=== PATIENT | male | born 1980 | race Caucasian/White ===

== ENCOUNTER 2018-12-26 19:36 | Emergency (ER) | payer SELFPAY ==
[~2018-12-26] VITALS: Ht 165.1 cm; Wt 73.0 kg
[2018-12-26 21:02] LABS: BASOPHILS % 1.1 % (0.0-2.0); EOSINOPHILS % 4.2 % (0.0-5.0); HEMOGLOBIN. 13.6 g/dL (14.0-18.0); LYMPHOCYTES % 40.1 % (20.0-50.0); MEAN CORPUSCULAR HEMOGLOBIN 29.3 pg (28.0-32.0); MEAN CORPUSCULAR VOLUME 86.3 fL (80.0-94.0); MONOCYTES % 10.7 % (2.0-8.0); NEUTROPHILS % 43.9 % (40.0-76.0); PLATELET 273 x1000/uL (130-400); RED BLOOD CELL COUNT 4.63 mill/uL (4.7-6.1); RED CELL DISTRIBUTION WIDTH 14.2 % (11.6-14.6)
[2018-12-26 21:05] LABS: CHLORIDE 105 mEq/L (98-107)
[2018-12-26 21:08] LABS: ETHANOL BLOOD < 10 mg/dL
[2018-12-26 21:40] LABS: *AMPHETAMINES SCREEN URINE NEGATIVE (NEGATIVE); *BARBITURATES SCREEN URINE NEGATIVE (NEGATIVE); *BENZODIAZEPINES SCREEN URINE NEGATIVE (NEGATIVE); *COCAINE SCREEN URINE NEGATIVE (NEGATIVE); CANNABINOID URINE SCREEN NEGATIVE (NEGATIVE); METHADONE URINE SCREEN NEGATIVE (NEGATIVE); OPIATES URINE SCREEN NEGATIVE (NEGATIVE); PHENCYCLIDINE URINE SCREEN NEGATIVE (NEGATIVE)
[2018-12-27] MEDS ORDERED: OLANZAPINE 10 MG/VIAL IM ONE (01:15)
[2018-12-27] MEDS ORDERED: LORAZEPAM 2MG/ML CPJ IM ONE ×2 (01:15→19:30)
[2018-12-27] MEDS ORDERED: DIPHENHYDRAMINE 50MG/ML VIAL IM ONE (01:15)
[2018-12-27] MEDS ORDERED: QUETIAPINE FUMARATE 100MG TABLET PO SCH (20:45)
[2018-12-28] MEDS: QUETIAPINE FUMARATE 100MG TABLET PO SCH ×3 (10:02→21:17)
[2018-12-29] MEDS ORDERED: LORAZEPAM 2MG/ML CPJ IM PRN (04:00)
[2018-12-29] MEDS: QUETIAPINE FUMARATE 100MG TABLET PO SCH ×2 (09:00)
[2018-12-29 10:52] VITALS: BP 123/82
== END 2018-12-29 11:15 | disposition home or self-care (01) ==
LOC: ER 19:59
DX: F06.33 Mood disorder due to known physiological condition with manic features (principal); R45.851 Suicidal ideations; Z75.1 Person awaiting admission to adequate facility elsewhere
CPT/HCPCS: 36415; 80048; 80305; 80307; 80320; 80329; 85025; 96372; 99284; J1200; J2060; J3490; 99285; G0480

== ENCOUNTER 2021-09-26 11:26 | Inpatient (IN) | payer MEDICARE, MEDICAID ==
[~2021-09-26] VITALS: Ht 165.1 cm; Wt 92.1 kg
[2021-09-26] MEDS ORDERED: NITROGLYCERIN 0.4MG TABLET SL SL PRN (11:45)
[2021-09-26] MEDS ORDERED: ASPIRIN 81MG TABLET PO ONE (11:45)
[2021-09-26 12:11] LABS: CHLORIDE 106 mEq/L (98-107)
[2021-09-26 12:14] LABS: ETHANOL BLOOD < 10 mg/dL
[2021-09-26 12:16] LABS: BASOPHILS % 0.5 % (0.0-2.0); EOSINOPHILS % 1.1 % (0.0-5.0); HEMATOCRIT. 43.2 % (42.0-52.0); LYMPHOCYTES % 47.8 % (20.0-50.0); MEAN CORPUSCULAR HEMOGLOBIN 29.9 pg (28.0-32.0); MEAN CORPUSCULAR VOLUME 86.3 fL (80.0-94.0); MEAN PLATELET VOLUME 9.9 fl (7.4-10.4); MONOCYTES % 11.2 % (2.0-8.0); NEUTROPHILS % 39.4 % (40.0-76.0); PLATELET 165 x1000/uL (130-400); RED BLOOD CELL COUNT 5.01 mill/uL (4.7-6.1); RED CELL DISTRIBUTION WIDTH 12.9 % (11.6-14.6)
[2021-09-26 12:33] LABS: *AMPHETAMINES SCREEN URINE NEGATIVE (NEGATIVE); *BARBITURATES SCREEN URINE NEGATIVE (NEGATIVE); CANNABINOID URINE SCREEN NEGATIVE (NEGATIVE); METHADONE URINE SCREEN NEGATIVE (NEGATIVE); OPIATES URINE SCREEN NEGATIVE (NEGATIVE); PHENCYCLIDINE URINE SCREEN NEGATIVE (NEGATIVE)
[2021-09-26 12:34] LABS: *BENZODIAZEPINES SCREEN URINE NEGATIVE (NEGATIVE); *COCAINE SCREEN URINE NEGATIVE (NEGATIVE)
[2021-09-26] MEDS ORDERED: SODIUM CHLORIDE 0.9% 1,000 ML IV ONE (12:45)
[2021-09-26 15:40] VITALS: BP 125/83
[2021-09-26] MEDS ORDERED: LACT1CAP60 PO (18:17)
[2021-09-26] MEDS ORDERED: PYRI-9 PO (18:17)
[2021-09-26] MEDS ORDERED: CHOL500063 (18:18)
[2021-09-26] MEDS ORDERED: BICT1TAB PO (18:30)
[2021-09-26] MEDS ORDERED: DIVA-75 MT (18:30)
[2021-09-26] MEDS ORDERED: ATOR20TA65 MT (18:30)
[2021-09-26] MEDS ORDERED: AMLO5TAB88 MT (18:30)
[2021-09-26] MEDS ORDERED: ISON300T19 MT (18:31)
[2021-09-26] MEDS ORDERED: OMEP20TA2 MT (18:31)
[2021-09-26 20:00] VITALS: BP 115/67
[2021-09-26] MEDS ORDERED: ZOLPIDEM TARTRATE 5MG TABLET PO PRN (21:00)
[2021-09-26] MEDS ORDERED: ATORVASTATIN CALCIUM 20MG TABLET PO SCH (21:00)
[2021-09-26] MEDS ORDERED: DIPHENHYDRAMINE 50MG/ML VIAL IV PRN (22:45)
[2021-09-26] MEDS ORDERED: CLONIDINE 0.1MG TABLET PO PRN (22:45)
[2021-09-26] MEDS ORDERED: GUAIFENESIN 200MG/10ML SUGAR FREE UDC PO PRN (22:45)
[2021-09-26] MEDS ORDERED: ONDANSETRON HCL 4MG/2ML INJ IV PRN (22:45)
[2021-09-26] MEDS ORDERED: ACETAMINOPHEN 325MG TABLET PO PRN ×2 (22:45)
[2021-09-27] VITALS: BP 124/80
[2021-09-27 05:45] VITALS: BP 125/78
[2021-09-27] MEDS: SODIUM CHLORIDE 0.9% INJ 3ML FLUSH IVF SCH ×2 (06:32→17:44)
[2021-09-27 06:48] LABS: BASOPHILS % 0.3 % (0.0-2.0); EOSINOPHILS % 1.8 % (0.0-5.0); HEMATOCRIT. 42.3 % (42.0-52.0); HEMOGLOBIN. 14.5 g/dL (14.0-18.0); LYMPHOCYTES % 45.6 % (20.0-50.0); MEAN CORPUSCULAR HEMOGLOBIN 29.9 pg (28.0-32.0); MEAN CORPUSCULAR VOLUME 87.2 fL (80.0-94.0); MONOCYTES % 11.7 % (2.0-8.0); NEUTROPHILS % 40.6 % (40.0-76.0); PLATELET 165 x1000/uL (130-400); RED BLOOD CELL COUNT 4.85 mill/uL (4.7-6.1); RED CELL DISTRIBUTION WIDTH 12.8 % (11.6-14.6)
[2021-09-27] MEDS ORDERED: ISONIAZID 300MG TABLET PO SCH (07:20)
[2021-09-27 07:24] LABS: CHLORIDE 106 mEq/L (98-107)
[2021-09-27 08:00] VITALS: BP 130/82
[2021-09-27] MEDS ORDERED: REGADENOSON 0.4 MG/5 ML IV ONE ×2 (08:30→09:02)
[2021-09-27] MEDS ORDERED: AMLODIPINE 5MG TABLET PO SCH (09:00)
[2021-09-27] MEDS ORDERED: PYRIDOXINE HCL 50MG TABLET PO SCH (09:00)
[2021-09-27] MEDS: DIVALPROEX SODIUM 500MG DR TABLET PO SCH ×2 (10:53→17:44)
[2021-09-27 12:00] VITALS: BP 107/57
[2021-09-27 14:33] VITALS: BP 107/57
[2021-09-27 16:00] VITALS: BP 116/91
== END 2021-09-27 19:30 | disposition home or self-care (01) | DRG 206 ==
LOC: ER 11:44 → 6WST 13:42 → ENRESERV 14:08
PROVIDERS: ADMIT Internal Medicine; ATTEND Internal Medicine
DX: M94.0 Chondrocostal junction syndrome [Tietze] (principal); E72.20 Disorder of urea cycle metabolism, unspecified; I10 Essential (primary) hypertension; F31.9 Bipolar disorder, unspecified; F29 Unspecified psychosis not due to a substance or known physiological condition; T42.6X5A Adverse effect of other antiepileptic and sedative-hypnotic drugs, initial encounter; E78.00 Pure hypercholesterolemia, unspecified; N62 Hypertrophy of breast; Z20.822 Contact with and (suspected) exposure to COVID-19; E78.5 Hyperlipidemia, unspecified; Z79.899 Other long term (current) drug therapy; Z80.3 Family history of malignant neoplasm of breast; Z82.49 Family history of ischemic heart disease and other diseases of the circulatory system; Z87.891 Personal history of nicotine dependence; Y92.89 Other specified places as the place of occurrence of the external cause; F15.11 Other stimulant abuse, in remission; Z21 Asymptomatic human immunodeficiency virus [HIV] infection status
CPT/HCPCS: 36415; 71045; 76642; 78452; 80048; 80053; 80061; 80165; 80305; 80320; 82140; 83735; 83880; 84484; 85025; 85379; 87426; 93005; 93017; 93306; 99285; A9500; J2785; J7030; G0480

== ENCOUNTER 2024-12-09 17:14 | Emergency (ER) | payer BC, MEDICAID, MEDICARE ==
[~2024-12-09] VITALS: Ht 165.1 cm; Wt 64.0 kg
[~2024-12-09 17:14] MED LIST: AMLO5TAB88 MT; ATOR20TA65 MT; BICT1TAB PO; CHOL500063; DIVA-75 MT; LACT1CAP60 PO; OMEP20TA23 MT; PYRI-9 PO; [UNRECOGNIZED DRUG - CODE] MT
[2024-12-09 17:19] VITALS: O2SAT 100
[2024-12-09] MEDS ORDERED: ACETAMINOPHEN 325MG TABLET PO ONE (18:45)
[2024-12-09] MEDS ORDERED: IBUP-2029 MT (20:49)
[2024-12-09] MEDS: ACETAMINOPHEN 325MG TABLET PO SCH (21:50)
[2024-12-09 23:21] VITALS: BP 125/88; PULSE 78; RESP 16; TEMP 36.6; O2SAT 98
== END 2024-12-09 23:29 ==
LOC: ER 17:14
DX: S83.92XA Sprain of unspecified site of left knee, initial encounter (principal); S09.90XA Unspecified injury of head, initial encounter; I10 Essential (primary) hypertension; Z79.899 Other long term (current) drug therapy; W18.30XA Fall on same level, unspecified, initial encounter; Y93.89 Activity, other specified; Y92.89 Other specified places as the place of occurrence of the external cause; Y99.8 Other external cause status
CPT/HCPCS: 73562; 99284; 99285